=== PATIENT | male | born 1960 | race Caucasian/White ===

== ENCOUNTER 2019-04-10 17:29 | Inpatient (IN) | payer MEDICAID, OTHER ==
[~2019-04-10] VITALS: Ht 167.6 cm; Wt 81.6 kg
[~2019-04-10 17:29] MED LIST: CARB200T PO; HYDR-519 PO; QUET300T2 PO; SERT100T PO
[2019-04-10 19:05] LABS: BASOPHILS % 0.4 % (0.0-2.0); EOSINOPHILS % 0.4 % (0.0-5.0); HEMOGLOBIN. 12.2 g/dL (14.0-18.0); LYMPHOCYTES % 15.2 % (20.0-50.0); MEAN CORPUSCULAR HEMOGLOBIN 31.8 pg (28.0-32.0); MEAN CORPUSCULAR VOLUME 93.5 fL (80.0-94.0); MEAN PLATELET VOLUME 6.6 fl (7.4-10.4); MONOCYTES % 9.2 % (2.0-8.0); NEUTROPHILS % 74.8 % (40.0-76.0); PLATELET 411 x1000/uL (130-400); RED BLOOD CELL COUNT 3.85 mill/uL (4.7-6.1); RED CELL DISTRIBUTION WIDTH 14.3 % (11.6-14.6)
[2019-04-10 19:12] LABS: CHLORIDE 100 mEq/L (98-107)
[2019-04-10 19:21] LABS: ETHANOL BLOOD < 10 mg/dL
[2019-04-10] MEDS ORDERED: QUETIAPINE FUMARATE 25MG TABLET PO SCH (20:00)
[2019-04-10] MEDS ORDERED: KETOROLAC 15MG/ML VIAL IV ONE (20:00)
[2019-04-10] MEDS ORDERED: HALOPERIDOL LACTATE 5MG/ML VIAL IM ONE (20:45)
[2019-04-10 20:57] LABS: CLARITY URINE CLEAR (CLEAR); COLOR URINE YELLOW (YELLOW); KETONES URINE NEGATIVE (NEGATIVE); LEUKOCYTE ESTERASE URINE NEGATIVE (NEGATIVE); NITRITE URINE NEGATIVE (NEGATIVE); OCCULT BLOOD URINE NEGATIVE (NEGATIVE); PROTEIN URINE NEGATIVE (NEGATIVE); SPECIFIC GRAVITY URINE 1.004 (1.005-1.030); UROBILINOGEN URINE 0.2 E.U./dL (0.2-1.0)
[2019-04-10 21:14] LABS: *BARBITURATES SCREEN URINE NEGATIVE (NEGATIVE)
[2019-04-10 21:15] LABS: *BENZODIAZEPINES SCREEN URINE NEGATIVE (NEGATIVE); *COCAINE SCREEN URINE NEGATIVE (NEGATIVE); METHADONE URINE SCREEN NEGATIVE (NEGATIVE)
[2019-04-10 21:16] LABS: CANNABINOID URINE SCREEN NEGATIVE (NEGATIVE); OPIATES URINE SCREEN NEGATIVE (NEGATIVE); PHENCYCLIDINE URINE SCREEN NEGATIVE (NEGATIVE)
[2019-04-10 21:17] LABS: *AMPHETAMINES SCREEN URINE NEGATIVE (NEGATIVE)
[2019-04-10] MEDS ORDERED: OLANZAPINE 10 MG/VIAL IM ONE (21:45)
[2019-04-11] MEDS ORDERED: TRAMADOL 50MG TABLET PO ONE (12:15)
[2019-04-11] MEDS ORDERED: LORAZEPAM 1MG TABLET PO ONE (12:45)
[2019-04-12] MEDS ORDERED: OLANZAPINE 10 MG/VIAL IM ONE ×2 (01:30→07:30)
[2019-04-12] MEDS ORDERED: LORAZEPAM 2MG/ML CPJ IV ONE ×2 (01:30→12:30)
[2019-04-12] MEDS ORDERED: ACETAMINOPHEN 325MG TABLET PO ONE (07:30)
[2019-04-12] MEDS ORDERED: SODIUM CHLORIDE 0.9% 1,000 ML IV ONE ×2 (12:15→14:00)
[2019-04-12] MEDS ORDERED: ONDANSETRON HCL 4MG/2ML INJ IV PRN (14:15)
[2019-04-12] MEDS ORDERED: ACETAMINOPHEN 325MG TABLET PO PRN (14:15)
[2019-04-12] MEDS ORDERED: HYDROMORPHONE HCL/PF 2MG/ML CPJ IV NR (14:30)
[2019-04-12] MEDS: NICOTINE 14MG PATCH TD SCH (17:10)
[2019-04-12] MEDS: CLONAZEPAM 1MG TABLET PO SCH (17:16)
[2019-04-12 20:15] VITALS: BP 122/81
[2019-04-12] MEDS: HYDROCODONE/ACETAMINOPHEN 10/325MG TABLET PO PRN (20:45)
[2019-04-12] MEDS ORDERED: BUSP30TA2 MT (21:00)
[2019-04-12] MEDS ORDERED: BUPR300T52 MT (21:00)
[2019-04-12] MEDS: LORAZEPAM 2MG/ML CPJ IV PRN (22:55)
[2019-04-13] VITALS: BP 132/74
[2019-04-13] MEDS: LORAZEPAM 2MG/ML CPJ IV PRN ×4 (02:36→20:15)
[2019-04-13 04:00] VITALS: BP 129/80
[2019-04-13] MEDS: BUSPIRONE HCL 10MG TABLET PO SCH ×2 (08:38→17:00)
[2019-04-13] MEDS: CLONAZEPAM 1MG TABLET PO SCH ×2 (08:38→17:00)
[2019-04-13] MEDS: HYDROCODONE/ACETAMINOPHEN 10/325MG TABLET PO PRN ×3 (08:38→21:26)
[2019-04-13] MEDS: NICOTINE 14MG PATCH TD SCH (08:43)
[2019-04-13] MEDS ORDERED: BUSPIRONE HCL MT SCH (09:00)
[2019-04-13] MEDS ORDERED: MEDICATION NOT ON FORMULARY EA (Bupropion Hcl (Wellbutrin Xl) 1 TAB) MT SCH (09:00)
[2019-04-13] MEDS: BUPROPION HCL 150MG TABLET XL 24HR PO SCH (09:16)
[2019-04-13 09:19] LABS: BASOPHILS % 0.4 % (0.0-2.0); HEMATOCRIT. 34.5 % (42.0-52.0); HEMOGLOBIN. 11.5 g/dL (14.0-18.0); LYMPHOCYTES % 16.9 % (20.0-50.0); MEAN CORPUSCULAR HEMOGLOBIN 31.2 pg (28.0-32.0); MEAN CORPUSCULAR VOLUME 93.8 fL (80.0-94.0); MEAN PLATELET VOLUME 7.2 fl (7.4-10.4); MONOCYTES % 12.4 % (2.0-8.0); NEUTROPHILS % 69.3 % (40.0-76.0); PLATELET 340 x1000/uL (130-400); RED BLOOD CELL COUNT 3.68 mill/uL (4.7-6.1); RED CELL DISTRIBUTION WIDTH 14.2 % (11.6-14.6)
[2019-04-13 09:42] LABS: CHLORIDE 102 mEq/L (98-107)
[2019-04-13] MEDS: SERTRALINE HCL 100MG TABLET PO SCH (13:29)
[2019-04-13] MEDS: OLANZAPINE 5MG TABLET PO SCH (13:29)
[2019-04-13 20:00] VITALS: BP 145/85
[2019-04-13] MEDS: APIXABAN 5 MG TABLET PO SCH (21:26)
[2019-04-14] VITALS: BP 146/93
[2019-04-14] MEDS: LORAZEPAM 2MG/ML CPJ IV PRN ×5 (00:17→19:55)
[2019-04-14] MEDS: HYDROCODONE/ACETAMINOPHEN 10/325MG TABLET PO PRN ×5 (01:35→19:54)
[2019-04-14 04:00] VITALS: BP 156/97
[2019-04-14 08:00] VITALS: BP 134/72
[2019-04-14] MEDS: OLANZAPINE 5MG TABLET PO SCH (08:28)
[2019-04-14] MEDS: BUSPIRONE HCL 10MG TABLET PO SCH ×2 (08:29→16:43)
[2019-04-14] MEDS: CLONAZEPAM 1MG TABLET PO SCH ×2 (08:30→16:43)
[2019-04-14] MEDS: SERTRALINE HCL 100MG TABLET PO SCH (08:30)
[2019-04-14] MEDS: NICOTINE 14MG PATCH TD SCH (08:30)
[2019-04-14] MEDS: BUPROPION HCL 150MG TABLET XL 24HR PO SCH (08:31)
[2019-04-14] MEDS: APIXABAN 5 MG TABLET PO SCH ×2 (08:31→16:43)
[2019-04-14 12:00] VITALS: BP 132/66
[2019-04-14 16:00] VITALS: BP 138/60
[2019-04-14 20:00] VITALS: BP 132/85
[2019-04-14] MEDS: LORAZEPAM 2MG/ML CPJ IM PRN (21:52)
[2019-04-15] VITALS: BP 137/75
[2019-04-15] MEDS: HYDROCODONE/ACETAMINOPHEN 10/325MG TABLET PO PRN ×3 (01:31→15:39)
[2019-04-15] MEDS: LORAZEPAM 2MG/ML CPJ IM PRN ×4 (02:09→19:51)
[2019-04-15 04:00] VITALS: BP 142/89
[2019-04-15] MEDS: BUSPIRONE HCL 10MG TABLET PO SCH ×2 (08:43→16:05)
[2019-04-15] MEDS: CLONAZEPAM 1MG TABLET PO SCH ×2 (08:43→16:04)
[2019-04-15] MEDS: SERTRALINE HCL 100MG TABLET PO SCH (08:43)
[2019-04-15] MEDS: NICOTINE 14MG PATCH TD SCH (08:43)
[2019-04-15] MEDS: APIXABAN 5 MG TABLET PO SCH ×2 (08:44→16:04)
[2019-04-15] MEDS: BUPROPION HCL 150MG TABLET XL 24HR PO SCH (08:45)
[2019-04-15] MEDS: OLANZAPINE 5MG TABLET PO SCH (08:46)
[2019-04-15 20:00] VITALS: BP 138/82
[2019-04-16 00:47] VITALS: BP 145/90
[2019-04-16] MEDS: HYDROCODONE/ACETAMINOPHEN 10/325MG TABLET PO PRN ×6 (01:01→21:56)
[2019-04-16] MEDS: LORAZEPAM 2MG/ML CPJ IM PRN ×3 (03:44→15:29)
[2019-04-16 04:00] VITALS: BP 148/91
[2019-04-16 08:00] VITALS: BP 156/97
[2019-04-16] MEDS: BUPROPION HCL 150MG TABLET XL 24HR PO SCH (08:05)
[2019-04-16] MEDS: CLONAZEPAM 1MG TABLET PO SCH ×2 (08:05→16:33)
[2019-04-16] MEDS: APIXABAN 5 MG TABLET PO SCH ×2 (08:05→16:32)
[2019-04-16] MEDS: BUSPIRONE HCL 10MG TABLET PO SCH ×2 (08:05→16:33)
[2019-04-16] MEDS: NICOTINE 14MG PATCH TD SCH (08:06)
[2019-04-16] MEDS: SERTRALINE HCL 100MG TABLET PO SCH (08:06)
[2019-04-16] MEDS: OLANZAPINE 5MG TABLET PO SCH (08:06)
[2019-04-16 12:00] VITALS: BP 158/95
[2019-04-16] MEDS ORDERED: HYDR-4009 MT (13:39)
[2019-04-16 16:00] VITALS: BP 127/77
[2019-04-17] MEDS: BUPROPION HCL 150MG TABLET XL 24HR PO SCH (08:18)
[2019-04-17] MEDS: BUSPIRONE HCL 10MG TABLET PO SCH ×2 (08:18→17:01)
[2019-04-17] MEDS: APIXABAN 5 MG TABLET PO SCH ×2 (08:18→17:01)
[2019-04-17] MEDS: CLONAZEPAM 1MG TABLET PO SCH ×2 (08:18→17:01)
[2019-04-17] MEDS: SERTRALINE HCL 100MG TABLET PO SCH (08:19)
[2019-04-17] MEDS: NICOTINE 14MG PATCH TD SCH (08:19)
[2019-04-17] MEDS: OLANZAPINE 5MG TABLET PO SCH (08:19)
[2019-04-17] MEDS: HYDROCODONE/ACETAMINOPHEN 10/325MG TABLET PO PRN ×3 (08:20→20:54)
[2019-04-17] MEDS: LORAZEPAM 2MG/ML CPJ IM PRN ×2 (09:56→14:08)
[2019-04-17 20:00] VITALS: BP 118/70
[2019-04-18] VITALS: BP 152/80
[2019-04-18] MEDS: HYDROCODONE/ACETAMINOPHEN 10/325MG TABLET PO PRN ×5 (00:58→18:13)
[2019-04-18] MEDS: LORAZEPAM 2MG/ML CPJ IM PRN ×4 (03:18→16:11)
[2019-04-18 04:00] VITALS: BP 151/88
[2019-04-18 08:00] VITALS: BP 138/94
[2019-04-18] MEDS: BUSPIRONE HCL 10MG TABLET PO SCH ×2 (08:00→16:42)
[2019-04-18] MEDS: SERTRALINE HCL 100MG TABLET PO SCH (08:00)
[2019-04-18] MEDS: APIXABAN 5 MG TABLET PO SCH ×2 (08:00→16:42)
[2019-04-18] MEDS: OLANZAPINE 5MG TABLET PO SCH (08:01)
[2019-04-18] MEDS: BUPROPION HCL 150MG TABLET XL 24HR PO SCH (08:01)
[2019-04-18] MEDS: NICOTINE 14MG PATCH TD SCH (08:02)
[2019-04-18 12:00] VITALS: BP 163/90
[2019-04-18] MEDS ORDERED: HALOPERIDOL LACTATE 5MG/ML VIAL IM PRN (13:30)
[2019-04-18] MEDS ORDERED: BUSPIRONE HCL 10MG TABLET PO SCH (21:00)
[2019-04-19] VITALS: BP 136/76
[2019-04-19] MEDS: HYDROCODONE/ACETAMINOPHEN 10/325MG TABLET PO PRN ×4 (01:18→18:05)
[2019-04-19 04:00] VITALS: BP 140/84
[2019-04-19] MEDS: LORAZEPAM 2MG/ML CPJ IM PRN ×4 (04:34→20:18)
[2019-04-19 08:00] VITALS: BP 132/82
[2019-04-19] MEDS: BUSPIRONE HCL 10MG TABLET PO SCH ×2 (08:09→16:20)
[2019-04-19] MEDS: APIXABAN 5 MG TABLET PO SCH ×2 (08:09→16:20)
[2019-04-19] MEDS: SERTRALINE HCL 100MG TABLET PO SCH (08:09)
[2019-04-19] MEDS: OLANZAPINE 5MG TABLET PO SCH ×2 (08:10→16:20)
[2019-04-19] MEDS: BUPROPION HCL 150MG TABLET XL 24HR PO SCH (08:10)
[2019-04-19] MEDS: NICOTINE 14MG PATCH TD SCH (08:11)
[2019-04-19] MEDS ORDERED: LIDOCAINE HCL 4% CREAM 76GM TUBE TP NR (11:00)
[2019-04-19] MEDS ORDERED: LIDOCAINE HCL/EPINEPHRINE 1%-EPI 1:100,000 20 ML VIAL INFIL NR (12:00)
[2019-04-19] MEDS ORDERED: HYDROMORPHONE HCL/PF 2MG/ML CPJ IM SCH (12:15)
[2019-04-19] MEDS ORDERED: HYDROMORPHONE HCL/PF 2MG/ML CPJ IV PRN (13:45)
[2019-04-19] MEDS: SODIUM HYPOCHLORITE (0.25%) 480ML SOLUTION (HALF STRENGTH) TOP SCH ×2 (14:15→22:00)
[2019-04-19] MEDS ORDERED: OLANZAPINE 10 MG/VIAL IM NR (15:30)
[2019-04-20] MEDS: HYDROCODONE/ACETAMINOPHEN 10/325MG TABLET PO PRN ×4 (04:16→18:11)
[2019-04-20] MEDS: SODIUM HYPOCHLORITE (0.25%) 480ML SOLUTION (HALF STRENGTH) TOP SCH (06:00)
[2019-04-20] MEDS: LORAZEPAM 2MG/ML CPJ IM PRN ×3 (06:06→16:10)
[2019-04-20] MEDS: SERTRALINE HCL 100MG TABLET PO SCH (08:11)
[2019-04-20] MEDS: BUSPIRONE HCL 10MG TABLET PO SCH ×2 (08:11→16:10)
[2019-04-20] MEDS: NICOTINE 14MG PATCH TD SCH (08:12)
[2019-04-20] MEDS: APIXABAN 5 MG TABLET PO SCH ×2 (08:12→16:10)
[2019-04-20] MEDS: OLANZAPINE 5MG TABLET PO SCH (08:55)
[2019-04-20] MEDS: BUPROPION HCL 150MG TABLET XL 24HR PO SCH (08:55)
[2019-04-20 20:00] VITALS: BP 132/84
[2019-04-21] VITALS: BP 152/101
[2019-04-21] MEDS: HYDROCODONE/ACETAMINOPHEN 10/325MG TABLET PO PRN ×4 (00:19→13:42)
[2019-04-21] MEDS: LORAZEPAM 2MG/ML CPJ IM PRN ×2 (03:27→10:00)
[2019-04-21 04:00] VITALS: BP 132/87
[2019-04-21 06:09] LABS: BASOPHILS % 1.2 % (0.0-2.0); HEMATOCRIT. 35.2 % (42.0-52.0); HEMOGLOBIN. 11.9 g/dL (14.0-18.0); LYMPHOCYTES % 17.3 % (20.0-50.0); MEAN CORPUSCULAR HEMOGLOBIN 31.4 pg (28.0-32.0); MEAN PLATELET VOLUME 7.9 fl (7.4-10.4); MONOCYTES % 14.7 % (2.0-8.0); NEUTROPHILS % 65.8 % (40.0-76.0); PLATELET 224 x1000/uL (130-400); RED BLOOD CELL COUNT 3.78 mill/uL (4.7-6.1); RED CELL DISTRIBUTION WIDTH 13.5 % (11.6-14.6)
[2019-04-21 06:10] LABS: CHLORIDE 105 mEq/L (98-107)
[2019-04-21 06:13] LABS: PROTHROMBIN TIME 10.6 sec (9.6-11.0)
[2019-04-21] MEDS: BUSPIRONE HCL 10MG TABLET PO SCH (08:31)
[2019-04-21] MEDS: OLANZAPINE 5MG TABLET PO SCH (08:31)
[2019-04-21] MEDS: BUPROPION HCL 150MG TABLET XL 24HR PO SCH (08:33)
[2019-04-21] MEDS: SERTRALINE HCL 100MG TABLET PO SCH (08:33)
[2019-04-21] MEDS: NICOTINE 14MG PATCH TD SCH (08:33)
[2019-04-21] MEDS: APIXABAN 5 MG TABLET PO SCH (08:33)
[2019-04-21] MEDS ORDERED: SULF1TAB48 MT (12:05)
[2019-04-21] MEDS ORDERED: AMOX-424 MT (12:05)
[2019-04-21 13:18] VITALS: BP 132/87
[2019-04-21 13:42] VITALS: BP 132/87
[2019-04-21] MEDS ORDERED: BUSPIRONE HCL 10MG TABLET PO SCH (14:15)
[2019-04-21] MEDS ORDERED: SULFAMETHOXAZOLE/TRIMETHOPRIM 400/80MG TAB PO SCH (21:00)
[2019-04-21] MEDS ORDERED: AMOXICILLIN/POTASSIUM CLAVULANATE 875/125MG TAB PO SCH (21:00)
== END 2019-04-21 15:35 | DRG 384 ==
LOC: ER 17:43 → EDBEDREQTM 04-12 12:50 → 6EST 04-12 13:49 → EDBEDREQ 04-12 14:09 → ENRESERV 04-12 19:17
PROVIDERS: ADMIT Internal Medicine; ATTEND Internal Medicine
PROC: 0HDLXZZ Extraction of Left Lower Leg Skin, External Approach (ICD-10-PCS; principal; 2019-04-19)
PROC: 0JBR0ZZ Excision of Left Foot Subcutaneous Tissue and Fascia, Open Approach (ICD-10-PCS; 2019-04-19)
DX: S91.002A Unspecified open wound, left ankle, initial encounter (principal); I82.403 Acute embolism and thrombosis of unspecified deep veins of lower extremity, bilateral; E87.1 Hypo-osmolality and hyponatremia; R45.851 Suicidal ideations; F20.9 Schizophrenia, unspecified; D64.9 Anemia, unspecified; F17.210 Nicotine dependence, cigarettes, uncomplicated; F31.9 Bipolar disorder, unspecified; L97.929 Non-pressure chronic ulcer of unspecified part of left lower leg with unspecified severity; L97.919 Non-pressure chronic ulcer of unspecified part of right lower leg with unspecified severity; L57.0 Actinic keratosis; I87.8 Other specified disorders of veins; L08.9 Local infection of the skin and subcutaneous tissue, unspecified; Z59.0 Homelessness; Z71.6 Tobacco abuse counseling
CPT/HCPCS: 36415; 71045; 73610; 80048; 80305; 80307; 80320; 80329; 81003; 87070; 87075; 93970; 96372; 96374; 99285; C1893; J1170; J1630; J1885; J2060; J3490; J7030; G0480

== ENCOUNTER 2019-04-28 08:05 | Inpatient (IN) | payer MEDICAID ==
[~2019-04-28] VITALS: Ht 167.6 cm; Wt 88.9 kg
[~2019-04-28 08:05] MED LIST changes: +AMOX-424 MT; +BUPR300T52 MT; +BUSP30TA2 MT; +HYDR-4009 MT; +SULF1TAB48 MT
[2019-04-28] MEDS ORDERED: VANCOMYCIN 1 G PREMIX 200 ML IV ONE (08:30)
[2019-04-28] MEDS ORDERED: PIPERACILLIN/TAZ 3.375G PREMIX 50 ML IV ONE (08:30)
[2019-04-28 09:31] LABS: BASOPHILS % 0.7 % (0.0-2.0); EOSINOPHILS % 0.7 % (0.0-5.0); HEMATOCRIT. 32.8 % (42.0-52.0); HEMOGLOBIN. 11.2 g/dL (14.0-18.0); LYMPHOCYTES % 10.8 % (20.0-50.0); MEAN CORPUSCULAR HEMOGLOBIN 31.2 pg (28.0-32.0); MEAN CORPUSCULAR VOLUME 91.3 fL (80.0-94.0); MEAN PLATELET VOLUME 7.1 fl (7.4-10.4); MONOCYTES % 11.7 % (2.0-8.0); NEUTROPHILS % 76.1 % (40.0-76.0); PLATELET 396 x1000/uL (130-400); RED BLOOD CELL COUNT 3.59 mill/uL (4.7-6.1); RED CELL DISTRIBUTION WIDTH 13.9 % (11.6-14.6)
[2019-04-28 09:36] LABS: CHLORIDE 102 mEq/L (98-107)
[2019-04-28 09:37] LABS: INR 1.1; PROTHROMBIN TIME 11.1 sec (9.6-11.0)
[2019-04-28 09:40] LABS: ETHANOL BLOOD < 10 mg/dL
[2019-04-28 09:49] LABS: CARBAMAZEPINE < 0.5 ug/mL (4-12)
[2019-04-28] MEDS ORDERED: ONDANSETRON HCL 4MG/2ML INJ IV ONE (10:15)
[2019-04-28] MEDS ORDERED: MORPHINE SULFATE 4 MG/ML CPJ (NOT FOR IM USE) IV ONE (10:15)
[2019-04-28 10:41] LABS: CLARITY URINE CLEAR (CLEAR); COLOR URINE YELLOW (YELLOW); KETONES URINE 1+ (NEGATIVE); LEUKOCYTE ESTERASE URINE NEGATIVE (NEGATIVE); NITRITE URINE NEGATIVE (NEGATIVE); OCCULT BLOOD URINE NEGATIVE (NEGATIVE); PH URINE 6.5 (4.5-8.0); PROTEIN URINE NEGATIVE (NEGATIVE); SPECIFIC GRAVITY URINE 1.012 (1.005-1.030)
[2019-04-28 10:54] LABS: *AMPHETAMINES SCREEN URINE NEGATIVE (NEGATIVE); *BARBITURATES SCREEN URINE NEGATIVE (NEGATIVE)
[2019-04-28 10:55] LABS: *BENZODIAZEPINES SCREEN URINE PRESUMTIVE POSITIVE (NEGATIVE); *COCAINE SCREEN URINE NEGATIVE (NEGATIVE); CANNABINOID URINE SCREEN NEGATIVE (NEGATIVE); METHADONE URINE SCREEN NEGATIVE (NEGATIVE); OPIATES URINE SCREEN NEGATIVE (NEGATIVE); PHENCYCLIDINE URINE SCREEN NEGATIVE (NEGATIVE)
[2019-04-28] MEDS ORDERED: ENOXAPARIN 80MG/0.8ML SYR SUBCUT ONE (11:15)
[2019-04-28] MEDS ORDERED: HYDROCODONE/ACETAMINOPHEN 5/325MG TABLET PO ONE (11:45)
[2019-04-28] MEDS ORDERED: CLONIDINE 0.1MG TABLET PO PRN (14:30)
[2019-04-28] MEDS ORDERED: ONDANSETRON HCL 4MG/2ML INJ IV PRN (14:30)
[2019-04-28] MEDS ORDERED: DOCUSATE SODIUM 100MG CAPSULE PO PRN (14:30)
[2019-04-28] MEDS ORDERED: ENOXAPARIN 40MG/0.4ML SYR SUBCUT SCH (14:30)
[2019-04-28] MEDS ORDERED: MAGNESIUM/ALUMINUM HYDROXIDE/SIMETHICONE 30ML UDC PO PRN (14:30)
[2019-04-28] MEDS ORDERED: IPRATROPIUM/ALBUTEROL 0.5-3(2.5)MG/3ML NEB HHN PRN (14:30)
[2019-04-28] MEDS ORDERED: GUAIFENESIN 200MG/10ML SUGAR FREE UDC PO PRN (14:30)
[2019-04-28 16:00] VITALS: BP 128/64
[2019-04-28] MEDS: CLINDAMYCIN 600 MG in DEXTROSE 5% WATER 50 ML IV SCH (17:14)
[2019-04-28] MEDS: LORAZEPAM 0.5MG TABLET PO PRN (17:14)
[2019-04-28] MEDS: KETOROLAC 15MG/ML VIAL IV PRN (18:16)
[2019-04-28 20:32] VITALS: BP 123/65
[2019-04-28] MEDS: ASCORBIC ACID 500 MG TABLET PO SCH (20:39)
[2019-04-28] MEDS: QUETIAPINE FUMARATE 50MG TABLET PO SCH (20:40)
[2019-04-28] MEDS: FAMOTIDINE 20MG TABLET PO SCH (20:40)
[2019-04-28] MEDS: ENOXAPARIN 100MG/ML SYR SUBCUT SCH (20:42)
[2019-04-28] MEDS ORDERED: ZOLPIDEM TARTRATE 5MG TABLET PO PRN (21:00)
[2019-04-28 22:00] VITALS: BP 124/68
[2019-04-29] VITALS (9 sets, daily range): BP systolic 0–163; BP diastolic 0–110
[2019-04-29] MEDS: CLINDAMYCIN 600 MG in DEXTROSE 5% WATER 50 ML IV SCH ×3 (00:59→16:45)
[2019-04-29] MEDS: KETOROLAC 15MG/ML VIAL IV PRN ×3 (01:54→16:45)
[2019-04-29] MEDS: LORAZEPAM 0.5MG TABLET PO PRN ×4 (07:02→21:44)
[2019-04-29] MEDS: ZINC SULFATE 220 MG ( 50 ) CAPSULE PO SCH (08:52)
[2019-04-29] MEDS: FAMOTIDINE 20MG TABLET PO SCH ×2 (08:52→21:44)
[2019-04-29] MEDS: ASCORBIC ACID 500 MG TABLET PO SCH ×2 (08:52→21:44)
[2019-04-29] MEDS: ENOXAPARIN 100MG/ML SYR SUBCUT SCH ×2 (08:54→21:00)
[2019-04-29] MEDS: ACETAMINOPHEN 325MG TABLET PO PRN ×2 (14:37→21:44)
[2019-04-29] MEDS: SODIUM HYPOCHLORITE 0.125% 473ML SOLUTION TOP SCH (21:30)
[2019-04-29] MEDS: QUETIAPINE FUMARATE 50MG TABLET PO SCH (21:44)
[2019-04-30] MEDS: CLINDAMYCIN 600 MG in DEXTROSE 5% WATER 50 ML IV SCH ×3 (01:00→17:00)
[2019-04-30 02:00] VITALS: BP 0/0
[2019-04-30 04:00] VITALS: BP 0/0
[2019-04-30] MEDS: LORAZEPAM 0.5MG TABLET PO PRN ×4 (07:14→20:26)
[2019-04-30] MEDS: ACETAMINOPHEN 325MG TABLET PO PRN ×2 (07:14→12:47)
[2019-04-30 08:00] VITALS: BP 119/67
[2019-04-30] MEDS: SODIUM HYPOCHLORITE 0.125% 473ML SOLUTION TOP SCH (09:00)
[2019-04-30] MEDS: ASCORBIC ACID 500 MG TABLET PO SCH ×2 (10:45→20:26)
[2019-04-30] MEDS: ZINC SULFATE 220 MG ( 50 ) CAPSULE PO SCH (10:45)
[2019-04-30] MEDS: FAMOTIDINE 20MG TABLET PO SCH ×2 (10:45→20:26)
[2019-04-30 12:00] VITALS: BP 120/74
[2019-04-30 16:00] VITALS: BP 148/99
[2019-04-30] MEDS: RIVAROXABAN 15 MG TABLET PO SCH (17:23)
[2019-04-30] MEDS: IBUPROFEN 400MG TABLET PO PRN (17:26)
[2019-04-30] MEDS: NICOTINE 14MG PATCH TD SCH (17:28)
[2019-04-30 20:00] VITALS: BP 154/90
[2019-04-30] MEDS: QUETIAPINE FUMARATE 50MG TABLET PO SCH (20:26)
[2019-05-01] MEDS: CLINDAMYCIN 600 MG in DEXTROSE 5% WATER 50 ML IV SCH ×3 (01:00→17:00)
[2019-05-01] MEDS: LORAZEPAM 0.5MG TABLET PO PRN ×5 (03:41→20:09)
[2019-05-01] MEDS: IBUPROFEN 400MG TABLET PO PRN ×3 (03:46→20:11)
[2019-05-01 04:00] VITALS: BP 135/89
[2019-05-01 08:00] VITALS: BP 143/90
[2019-05-01] MEDS: SODIUM HYPOCHLORITE 0.125% 473ML SOLUTION TOP SCH (09:00)
[2019-05-01] MEDS: ASCORBIC ACID 500 MG TABLET PO SCH ×2 (09:23→20:09)
[2019-05-01] MEDS: ZINC SULFATE 220 MG ( 50 ) CAPSULE PO SCH (09:23)
[2019-05-01] MEDS: FAMOTIDINE 20MG TABLET PO SCH ×2 (09:23→20:09)
[2019-05-01] MEDS: RIVAROXABAN 15 MG TABLET PO SCH ×2 (09:24→17:00)
[2019-05-01] MEDS: NICOTINE 14MG PATCH TD SCH (09:43)
[2019-05-01] MEDS: ACETAMINOPHEN 325MG TABLET PO PRN (09:43)
[2019-05-01 12:00] VITALS: BP 157/89
[2019-05-01 16:00] VITALS: BP 130/75
[2019-05-01 20:00] VITALS: BP 177/111
[2019-05-01] MEDS: QUETIAPINE FUMARATE 50MG TABLET PO SCH (20:09)
[2019-05-02] MEDS: CLINDAMYCIN 600 MG in DEXTROSE 5% WATER 50 ML IV SCH ×3 (01:00→11:08)
[2019-05-02] MEDS: ACETAMINOPHEN 325MG TABLET PO PRN ×3 (02:04→16:31)
[2019-05-02 04:00] VITALS: BP 136/84
[2019-05-02] MEDS: LORAZEPAM 0.5MG TABLET PO PRN ×4 (04:16→18:13)
[2019-05-02] MEDS: IBUPROFEN 400MG TABLET PO PRN ×3 (04:16→22:16)
[2019-05-02] MEDS: ZINC SULFATE 220 MG ( 50 ) CAPSULE PO SCH (08:08)
[2019-05-02] MEDS: ASCORBIC ACID 500 MG TABLET PO SCH ×2 (08:08→22:00)
[2019-05-02] MEDS: NICOTINE 14MG PATCH TD SCH (08:08)
[2019-05-02] MEDS: FAMOTIDINE 20MG TABLET PO SCH ×2 (08:08→21:59)
[2019-05-02] MEDS: RIVAROXABAN 15 MG TABLET PO SCH ×2 (08:09→16:30)
[2019-05-02] MEDS: SODIUM HYPOCHLORITE 0.125% 473ML SOLUTION TOP SCH (08:16)
[2019-05-02 12:00] VITALS: BP 118/78
[2019-05-02 16:00] VITALS: BP 142/95
[2019-05-02] MEDS: QUETIAPINE FUMARATE 50MG TABLET PO SCH (22:16)
[2019-05-03] MEDS: CLINDAMYCIN 600 MG in DEXTROSE 5% WATER 50 ML IV SCH ×2 (01:00→08:02)
[2019-05-03 04:00] VITALS: BP 145/79
[2019-05-03] MEDS: LORAZEPAM 0.5MG TABLET PO PRN ×4 (05:12→20:58)
[2019-05-03] MEDS: IBUPROFEN 400MG TABLET PO PRN ×2 (07:18→15:47)
[2019-05-03 08:00] VITALS: BP 138/64
[2019-05-03] MEDS: SODIUM HYPOCHLORITE 0.125% 473ML SOLUTION TOP SCH (08:02)
[2019-05-03] MEDS: ASCORBIC ACID 500 MG TABLET PO SCH ×2 (08:07→20:58)
[2019-05-03] MEDS: RIVAROXABAN 15 MG TABLET PO SCH ×2 (08:07→17:10)
[2019-05-03] MEDS: NICOTINE 14MG PATCH TD SCH (08:07)
[2019-05-03] MEDS: FAMOTIDINE 20MG TABLET PO SCH ×2 (08:07→20:58)
[2019-05-03] MEDS: ZINC SULFATE 220 MG ( 50 ) CAPSULE PO SCH (08:07)
[2019-05-03] MEDS: ACETAMINOPHEN 325MG TABLET PO PRN (11:26)
[2019-05-03 12:00] VITALS: BP_SYST 132; BP_SYST 142; BP_DIAS 62; BP_DIAS 94
[2019-05-03] MEDS ORDERED: LIDOCAINE HCL/EPINEPHRINE 1%-EPI 1:100,000 20 ML VIAL INFIL NR (13:45)
[2019-05-03] MEDS: CLINDAMYCIN HCL 150MG CAPSULE PO SCH ×2 (14:41→22:14)
[2019-05-03 16:00] VITALS: BP_SYST 136; BP_SYST 138; BP_DIAS 67; BP_DIAS 90
[2019-05-03 20:00] VITALS: BP 125/88
[2019-05-03] MEDS: QUETIAPINE FUMARATE 50MG TABLET PO SCH (20:58)
[2019-05-03] MEDS: ZOLPIDEM TARTRATE 5MG TABLET PO PRN (22:14)
[2019-05-04] MEDS: ACETAMINOPHEN 325MG TABLET PO PRN ×2 (03:32→14:32)
[2019-05-04] MEDS: LORAZEPAM 0.5MG TABLET PO PRN ×2 (03:32→09:19)
[2019-05-04] MEDS: CLINDAMYCIN HCL 150MG CAPSULE PO SCH ×3 (05:40→21:49)
[2019-05-04 08:00] VITALS: BP_SYST 126; BP_SYST 136; BP_DIAS 72; BP_DIAS 82
[2019-05-04] MEDS: RIVAROXABAN 15 MG TABLET PO SCH ×2 (08:07→17:19)
[2019-05-04] MEDS: ZINC SULFATE 220 MG ( 50 ) CAPSULE PO SCH (08:07)
[2019-05-04] MEDS: FAMOTIDINE 20MG TABLET PO SCH ×2 (08:07→21:48)
[2019-05-04] MEDS: ASCORBIC ACID 500 MG TABLET PO SCH ×2 (08:07→21:48)
[2019-05-04] MEDS: NICOTINE 14MG PATCH TD SCH (08:07)
[2019-05-04] MEDS: SODIUM HYPOCHLORITE 0.125% 473ML SOLUTION TOP SCH (08:07)
[2019-05-04] MEDS: BUSPIRONE HCL 10MG TABLET PO SCH ×2 (10:33→17:19)
[2019-05-04 12:00] VITALS: BP 139/83
[2019-05-04 20:00] VITALS: BP 150/82
[2019-05-04] MEDS: QUETIAPINE FUMARATE 50MG TABLET PO SCH (21:48)
[2019-05-04] MEDS: ZOLPIDEM TARTRATE 5MG TABLET PO PRN (21:49)
[2019-05-04] MEDS: IBUPROFEN 400MG TABLET PO PRN (21:54)
[2019-05-05] MEDS: CLINDAMYCIN HCL 150MG CAPSULE PO SCH ×3 (06:27→22:07)
[2019-05-05] MEDS: IBUPROFEN 400MG TABLET PO PRN ×2 (06:36→15:30)
[2019-05-05] MEDS: ASCORBIC ACID 500 MG TABLET PO SCH ×2 (08:50→20:52)
[2019-05-05] MEDS: FAMOTIDINE 20MG TABLET PO SCH ×2 (08:50→20:52)
[2019-05-05] MEDS: BUSPIRONE HCL 10MG TABLET PO SCH (08:50)
[2019-05-05] MEDS: RIVAROXABAN 15 MG TABLET PO SCH ×2 (08:50→16:39)
[2019-05-05] MEDS: ZINC SULFATE 220 MG ( 50 ) CAPSULE PO SCH (08:50)
[2019-05-05] MEDS: NICOTINE 14MG PATCH TD SCH (08:53)
[2019-05-05] MEDS: SODIUM HYPOCHLORITE 0.125% 473ML SOLUTION TOP SCH (08:53)
[2019-05-05 12:00] VITALS: BP 114/77
[2019-05-05] MEDS: LORAZEPAM 2MG/ML CPJ IM PRN ×2 (12:19→20:58)
[2019-05-05] MEDS ORDERED: BUSPIRONE HCL 10MG TABLET PO NR (15:45)
[2019-05-05 16:00] VITALS: BP 110/74
[2019-05-05 20:00] VITALS: BP 148/90
[2019-05-05] MEDS ORDERED: QUETIAPINE FUMARATE 50MG TABLET PO SCH ×2 (21:00)
[2019-05-05] MEDS: ZOLPIDEM TARTRATE 5MG TABLET PO PRN (22:08)
[2019-05-05] MEDS: ACETAMINOPHEN 325MG TABLET PO PRN (22:20)
[2019-05-06] VITALS: BP 133/58
[2019-05-06] MEDS: IBUPROFEN 400MG TABLET PO PRN (03:46)
[2019-05-06 04:00] VITALS: BP 153/75
[2019-05-06] MEDS: SODIUM HYPOCHLORITE 0.125% 473ML SOLUTION TOP SCH (04:01)
[2019-05-06] MEDS: LORAZEPAM 2MG/ML CPJ IM PRN (04:28)
[2019-05-06] MEDS: FAMOTIDINE 20MG TABLET PO SCH (08:25)
[2019-05-06] MEDS: ZINC SULFATE 220 MG ( 50 ) CAPSULE PO SCH (08:25)
[2019-05-06] MEDS: ASCORBIC ACID 500 MG TABLET PO SCH (08:25)
[2019-05-06] MEDS: NICOTINE 14MG PATCH TD SCH (08:26)
[2019-05-06] MEDS: RIVAROXABAN 15 MG TABLET PO SCH (08:26)
[2019-05-06] MEDS ORDERED: BUPROPION HCL 150MG TABLET XL 24HR PO SCH (09:00)
[2019-05-06] MEDS ORDERED: BUSPIRONE HCL 10MG TABLET PO SCH (09:00)
[2019-05-06] MEDS ORDERED: SERTRALINE HCL 100MG TABLET PO SCH (09:00)
[2019-05-06] MEDS: ACETAMINOPHEN 325MG TABLET PO PRN (11:48)
[2019-05-09] MEDS ORDERED: QUETIAPINE FUMARATE 50MG TABLET PO SCH (21:00)
[2019-05-21] MEDS ORDERED: RIVAROXABAN 20 MG TABLET PO SCH (17:00)
== END 2019-05-06 13:35 | disposition home health service (06) | DRG 197 ==
LOC: ER 08:05 → 7WST 11:35 → EDBEDREQTM 11:38 → EDBEDREQ 11:38 → EDBEDREQSVC 11:38 → ENRESERV 12:21 → 6EST 05-02 11:16
PROVIDERS: ADMIT Internal Medicine; ATTEND Internal Medicine
PROC: 0HBLXZX Excision of Left Lower Leg Skin, External Approach, Diagnostic (ICD-10-PCS; principal; 2019-05-03)
DX: I82.403 Acute embolism and thrombosis of unspecified deep veins of lower extremity, bilateral (principal); E44.1 Mild protein-calorie malnutrition; E83.51 Hypocalcemia; F20.9 Schizophrenia, unspecified; F31.9 Bipolar disorder, unspecified; I73.9 Peripheral vascular disease, unspecified; L97.919 Non-pressure chronic ulcer of unspecified part of right lower leg with unspecified severity; L97.929 Non-pressure chronic ulcer of unspecified part of left lower leg with unspecified severity; F19.10 Other psychoactive substance abuse, uncomplicated; Z72.0 Tobacco use; Z91.19 Patient's noncompliance with other medical treatment and regimen; Z59.0 Homelessness; Z91.11 Patient's noncompliance with dietary regimen; Z91.14 Patient's other noncompliance with medication regimen; Z88.8 Allergy status to other drugs, medicaments and biological substances; Z68.31 Body mass index [BMI] 31.0-31.9, adult; Z79.899 Other long term (current) drug therapy
CPT/HCPCS: 36415; 71045; 80156; 80305; 80320; 81003; 83036; 83605; 83880; 84145; 84484; 88304; 93005; 93923; 93970; 96365; 96367; 96375; 99291; J1650; J1885; J2060; J2270; J2405; J2543; J3370; J3490; J7040; J7060; G0480

== ENCOUNTER 2019-05-07 05:23 | Emergency (ER) | payer MEDICAID ==
[~2019-05-07] VITALS: Ht 175.3 cm; Wt 91.0 kg
[2019-05-07] MEDS ORDERED: ONDANSETRON HCL 4MG/2ML INJ IV STA (07:07)
[2019-05-07] MEDS ORDERED: QUETIAPINE FUMARATE 25MG TABLET PO STA (07:07)
[2019-05-07] MEDS ORDERED: MORPHINE SULFATE 4 MG/ML CPJ (NOT FOR IM USE) IV STA (07:07)
[2019-05-07] MEDS ORDERED: LORAZEPAM 2MG/ML CPJ IV ONE (07:15)
[2019-05-07] MEDS ORDERED: PIPERACILLIN/TAZ 3.375G PREMIX 50 ML IV ONE (07:15)
[2019-05-07] MEDS ORDERED: VANCOMYCIN 1 G PREMIX 200 ML IV ONE (07:15)
[2019-05-07] MEDS ORDERED: SODIUM CHLORIDE 0.9% 1000ML BAG (SEPSIS BOLUS) IV ONE (07:15)
[2019-05-07 07:19] LABS: BASOPHILS % 0.2 % (0.0-2.0); EOSINOPHILS % 0.3 % (0.0-5.0); HEMATOCRIT. 34.9 % (42.0-52.0); HEMOGLOBIN. 11.9 g/dL (14.0-18.0); LYMPHOCYTES % 9.4 % (20.0-50.0); MEAN CORPUSCULAR HEMOGLOBIN 30.5 pg (28.0-32.0); MEAN CORPUSCULAR VOLUME 89.2 fL (80.0-94.0); MEAN PLATELET VOLUME 7.7 fl (7.4-10.4); MONOCYTES % 13.5 % (2.0-8.0); NEUTROPHILS % 76.6 % (40.0-76.0); PLATELET 464 x1000/uL (130-400); RED BLOOD CELL COUNT 3.91 mill/uL (4.7-6.1)
[2019-05-07 07:26] LABS: CHLORIDE 94 mEq/L (98-107)
[2019-05-07 07:27] LABS: INR 1.1; PROTHROMBIN TIME 11.4 sec (9.6-11.0)
[2019-05-07 07:39] LABS: CLARITY URINE CLEAR (CLEAR); COLOR URINE YELLOW (YELLOW); KETONES URINE NEGATIVE (NEGATIVE); LEUKOCYTE ESTERASE URINE NEGATIVE (NEGATIVE); NITRITE URINE NEGATIVE (NEGATIVE); OCCULT BLOOD URINE NEGATIVE (NEGATIVE); PH URINE 8.5 (4.5-8.0); PROTEIN URINE NEGATIVE (NEGATIVE); SPECIFIC GRAVITY URINE 1.013 (1.005-1.030)
[2019-05-07] MEDS ORDERED: RIVAROXABAN 10 MG TABLET PO STA (08:34)
[2019-05-07] MEDS ORDERED: TRAMADOL 50MG TABLET PO ONE (13:00)
[2019-05-07] MEDS ORDERED: ACETAMINOPHEN 325MG TABLET PO ONE ×2 (15:15→21:30)
[2019-05-08] MEDS ORDERED: BUPROPION HCL 100MG TABLET PO SCH (01:30)
[2019-05-08] MEDS ORDERED: BUSPIRONE HCL 10MG TABLET PO SCH (01:30)
[2019-05-08] MEDS ORDERED: QUETIAPINE FUMARATE 50MG TABLET PO SCH (01:30)
[2019-05-08] MEDS ORDERED: ACETAMINOPHEN 500MG TABLET PO ONE (02:15)
[2019-05-08] MEDS ORDERED: IBUPROFEN 600MG TABLET PO ONE (02:15)
[2019-05-08] MEDS ORDERED: HYDROCODONE/ACETAMINOPHEN 5/325MG TABLET PO ONE (03:15)
[2019-05-08 06:11] VITALS: BP 124/75
== END 2019-05-08 06:53 ==
LOC: ER 05:23
DX: I82.513 Chronic embolism and thrombosis of femoral vein, bilateral (principal); L03.116 Cellulitis of left lower limb; L03.115 Cellulitis of right lower limb; F32.9 Major depressive disorder, single episode, unspecified; Z59.0 Homelessness; Z88.8 Allergy status to other drugs, medicaments and biological substances; Z79.01 Long term (current) use of anticoagulants
CPT/HCPCS: 36415; 71045; 80053; 81003; 83605; 85025; 85610; 87040; 87086; 93005; 93970; 96365; 96366; 96368; 96375; 99284; A4217; J2060; J2270; J2405; J2543; J3370; J7030; Z7610

== ENCOUNTER 2019-06-05 15:48 | Inpatient (IN) | payer MEDICAID ==
[~2019-06-05] VITALS: Ht 177.8 cm; Wt 90.7 kg
[2019-06-05 19:05] LABS: CLARITY URINE CLEAR (CLEAR); COLOR URINE YELLOW (YELLOW); KETONES URINE NEGATIVE (NEGATIVE); LEUKOCYTE ESTERASE URINE NEGATIVE (NEGATIVE); NITRITE URINE NEGATIVE (NEGATIVE); OCCULT BLOOD URINE NEGATIVE (NEGATIVE); PROTEIN URINE NEGATIVE (NEGATIVE); SPECIFIC GRAVITY URINE 1.003 (1.005-1.030); UROBILINOGEN URINE 0.2 E.U./dL (0.2-1.0)
[2019-06-05 19:18] LABS: BASOPHILS % 0.6 % (0.0-2.0); EOSINOPHILS % 1.1 % (0.0-5.0); HEMATOCRIT. 29.3 % (42.0-52.0); HEMOGLOBIN. 9.9 g/dL (14.0-18.0); LYMPHOCYTES % 15.9 % (20.0-50.0); MEAN CORPUSCULAR HEMOGLOBIN 29.1 pg (28.0-32.0); MEAN CORPUSCULAR VOLUME 86.5 fL (80.0-94.0); MEAN PLATELET VOLUME 6.8 fl (7.4-10.4); NEUTROPHILS % 70.4 % (40.0-76.0); PLATELET 363 x1000/uL (130-400); RED BLOOD CELL COUNT 3.39 mill/uL (4.7-6.1); RED CELL DISTRIBUTION WIDTH 14.4 % (11.6-14.6)
[2019-06-05 19:32] LABS: CHLORIDE 98 mEq/L (98-107)
[2019-06-05 19:38] LABS: *AMPHETAMINES SCREEN URINE NEGATIVE (NEGATIVE); *BARBITURATES SCREEN URINE NEGATIVE (NEGATIVE); *BENZODIAZEPINES SCREEN URINE NEGATIVE (NEGATIVE); *COCAINE SCREEN URINE NEGATIVE (NEGATIVE); METHADONE URINE SCREEN NEGATIVE (NEGATIVE)
[2019-06-05 19:39] LABS: CANNABINOID URINE SCREEN NEGATIVE (NEGATIVE); OPIATES URINE SCREEN NEGATIVE (NEGATIVE); PHENCYCLIDINE URINE SCREEN NEGATIVE (NEGATIVE)
[2019-06-05] MEDS ORDERED: LORAZEPAM 0.5MG TABLET PO ONE (20:30)
[2019-06-06] MEDS ORDERED: MORPHINE SULFATE 10 MG/ML CPJ IM ONE (10:30)
[2019-06-06] MEDS ORDERED: LORAZEPAM 1MG TABLET PO ONE ×2 (12:00→15:15)
[2019-06-06] MEDS ORDERED: OLANZAPINE 10 MG/VIAL IM ONE ×2 (12:30→16:30)
[2019-06-06] MEDS ORDERED: TRAMADOL 50MG TABLET PO ONE (15:30)
[2019-06-06] MEDS ORDERED: CLONIDINE 0.1MG TABLET PO PRN (16:00)
[2019-06-06] MEDS ORDERED: MAGNESIUM/ALUMINUM HYDROXIDE/SIMETHICONE 30ML UDC PO PRN (16:00)
[2019-06-06] MEDS: HYDROCODONE/ACETAMINOPHEN 5/325MG TABLET PO PRN (16:40)
[2019-06-06] MEDS: LORAZEPAM 2MG/ML CPJ IM PRN (16:45)
[2019-06-07] MEDS: LORAZEPAM 2MG/ML CPJ IM PRN ×2 (03:14→22:48)
[2019-06-07] MEDS: HYDROCODONE/ACETAMINOPHEN 5/325MG TABLET PO PRN ×4 (03:15→17:54)
[2019-06-07 05:13] LABS: CHLORIDE 103 mEq/L (98-107)
[2019-06-07 05:16] LABS: BASOPHILS % 0.6 % (0.0-2.0); HEMATOCRIT. 30.1 % (42.0-52.0); LYMPHOCYTES % 14.7 % (20.0-50.0); MEAN CORPUSCULAR HEMOGLOBIN 28.9 pg (28.0-32.0); MEAN PLATELET VOLUME 6.7 fl (7.4-10.4); MONOCYTES % 13.5 % (2.0-8.0); NEUTROPHILS % 70.2 % (40.0-76.0); PLATELET 343 x1000/uL (130-400); RED BLOOD CELL COUNT 3.46 mill/uL (4.7-6.1); RED CELL DISTRIBUTION WIDTH 14.6 % (11.6-14.6)
[2019-06-07 05:21] LABS: PHOSPHORUS 4.1 mg/dL (2.5-4.9)
[2019-06-07] MEDS ORDERED: OLANZAPINE 10 MG/VIAL IM ONE (06:45)
[2019-06-07] MEDS ORDERED: DIPHENHYDRAMINE 50MG/ML VIAL IM ONE (06:45)
[2019-06-07] MEDS ORDERED: PANTOPRAZOLE SODIUM 40 MG/VIAL IV SCH (09:00)
[2019-06-07] MEDS: LORAZEPAM 2MG/ML CPJ IV PRN ×3 (09:14→18:00)
[2019-06-07] MEDS ORDERED: MORPHINE SULFATE 2 MG/ML CPJ (NOT FOR IM USE) IV PRN (15:00)
[2019-06-07 18:15] VITALS: BP 132/80
[2019-06-07] MEDS: APIXABAN 5 MG TABLET PO SCH (18:30)
[2019-06-07 20:00] VITALS: BP 115/88
[2019-06-07] MEDS: BUSPIRONE HCL 10MG TABLET PO SCH (20:05)
[2019-06-07] MEDS ORDERED: MORPHINE SULFATE 4 MG/ML CPJ (NOT FOR IM USE) IV PRN (20:45)
[2019-06-07] MEDS: MORPHINE SULFATE 2 MG/ML CPJ (NOT FOR IM USE) IV PRN (22:13)
[2019-06-08] VITALS: BP 120/89
[2019-06-08] MEDS: HYDROCODONE/ACETAMINOPHEN 10/325MG TABLET PO PRN ×3 (02:00→18:17)
[2019-06-08] MEDS: LORAZEPAM 2MG/ML CPJ IV PRN ×4 (03:26→20:24)
[2019-06-08 04:00] VITALS: BP 118/86
[2019-06-08] MEDS: MORPHINE SULFATE 2 MG/ML CPJ (NOT FOR IM USE) IV PRN ×2 (06:06→13:19)
[2019-06-08 07:32] LABS: CHLORIDE 99 mEq/L (98-107)
[2019-06-08] MEDS: APIXABAN 5 MG TABLET PO SCH ×2 (08:17→16:50)
[2019-06-08] MEDS: BUSPIRONE HCL 10MG TABLET PO SCH ×2 (08:17→20:24)
[2019-06-08] MEDS: SERTRALINE HCL 100MG TABLET PO SCH (08:18)
[2019-06-08 08:19] LABS: EOSINOPHILS % 1.1 % (0.0-5.0); HEMATOCRIT. 32.1 % (42.0-52.0); HEMOGLOBIN. 10.7 g/dL (14.0-18.0); LYMPHOCYTES % 22.8 % (20.0-50.0); MEAN CORPUSCULAR HEMOGLOBIN 29.2 pg (28.0-32.0); MEAN CORPUSCULAR VOLUME 87.4 fL (80.0-94.0); MEAN PLATELET VOLUME 7.4 fl (7.4-10.4); MONOCYTES % 12.1 % (2.0-8.0); PLATELET 356 x1000/uL (130-400); RED BLOOD CELL COUNT 3.67 mill/uL (4.7-6.1); RED CELL DISTRIBUTION WIDTH 14.5 % (11.6-14.6)
[2019-06-08 12:00] VITALS: BP 123/54
[2019-06-08 20:00] VITALS: BP 124/82
[2019-06-09] VITALS: BP 110/63
[2019-06-09] MEDS: HYDROCODONE/ACETAMINOPHEN 10/325MG TABLET PO PRN ×3 (02:05→12:19)
[2019-06-09] MEDS: LORAZEPAM 2MG/ML CPJ IV PRN ×2 (02:06→06:27)
[2019-06-09 04:00] VITALS: BP 119/70
[2019-06-09 08:00] VITALS: BP 126/79
[2019-06-09] MEDS: BUSPIRONE HCL 10MG TABLET PO SCH (08:23)
[2019-06-09] MEDS: SERTRALINE HCL 100MG TABLET PO SCH (08:23)
[2019-06-09] MEDS: APIXABAN 5 MG TABLET PO SCH ×2 (08:23→08:29)
[2019-06-09] MEDS ORDERED: LORAZEPAM 2MG/ML CPJ IM PRN (11:00)
[2019-06-09] MEDS ORDERED: BUSP30TA2 MT (11:10)
[2019-06-09 12:19] VITALS: BP 128/78
== END 2019-06-09 12:22 | disposition left against medical advice (07) | DRG 197 ==
LOC: ER 16:11 → 6EST 06-06 14:11 → ENRESERV 06-07 00:13 → CANRESERV 06-07 00:13 → ENRESERV 06-07 15:51
PROVIDERS: ADMIT Internal Medicine; ATTEND Internal Medicine
DX: I83.209 Varicose veins of unspecified lower extremity with both ulcer of unspecified site and inflammation (principal); E11.51 Type 2 diabetes mellitus with diabetic peripheral angiopathy without gangrene; E11.621 Type 2 diabetes mellitus with foot ulcer; F20.9 Schizophrenia, unspecified; L97.919 Non-pressure chronic ulcer of unspecified part of right lower leg with unspecified severity; L97.929 Non-pressure chronic ulcer of unspecified part of left lower leg with unspecified severity; D63.8 Anemia in other chronic diseases classified elsewhere; F17.200 Nicotine dependence, unspecified, uncomplicated; D64.9 Anemia, unspecified; R45.851 Suicidal ideations; F41.9 Anxiety disorder, unspecified; K21.9 Gastro-esophageal reflux disease without esophagitis; F31.9 Bipolar disorder, unspecified; I82.513 Chronic embolism and thrombosis of femoral vein, bilateral; Z53.29 Procedure and treatment not carried out because of patient's decision for other reasons; I82.533 Chronic embolism and thrombosis of popliteal vein, bilateral; Z59.0 Homelessness; Z91.11 Patient's noncompliance with dietary regimen; Z88.8 Allergy status to other drugs, medicaments and biological substances; Z79.899 Other long term (current) drug therapy; Z71.6 Tobacco abuse counseling; Z87.440 Personal history of urinary (tract) infections; Z95.828 Presence of other vascular implants and grafts
CPT/HCPCS: 36415; 71045; 72100; 80048; 80305; 81003; 83735; 83880; 84100; 84484; 93005; 93970; 96372; 99284; C1893; J1200; J2060; J2270; J3490